=== PATIENT | male | born 1945 | race Hispanic/Latino ===

== ENCOUNTER 2021-11-19 06:19 | Day surgery (SDC) | payer OTHER ==
[2021-11-16 12:34] LABS: BASOPHILS % (AUTO) 0.6 % (0.0-5.0); EOSINOPHILS % (AUTO) 4.5 % (0.0-8.0); LYMPHOCYTES % (AUTO) 20.1 % (21.0-51.0); MEAN CORPUSCULAR HEMOGLOBIN 28.5 pg (27.0-33.0); MEAN CORPUSCULAR VOLUME 86.6 fL (79-99); MONOCYTES % (AUTO) 8.6 % (3.0-13.0); NEUTROPHILS % (AUTO) 66.1 % (40.0-77.0); PLATELET COUNT (AUTO) 181 K/uL (130-400); RED BLOOD CELL COUNT(AUTO) 5.08 MIL/uL (4.50-6.20); RED CELL DISTRIBUTION WIDTH 13.2 % (11.0-15.5); WHITE BLOOD COUNT (AUTO) 7.1 K/uL (4.8-10.8)
[2021-11-16 12:47] LABS: PROTHROMBIN TIME 10.9 SEC (9.6-11.6)
[2021-11-16 12:49] LABS: PARTIAL THROMBOPLASTIN TIME 26.1 SEC (26.3-35.5)
[2021-11-16 13:03] LABS: CREATININE 1.6 mg/dL (0.5-1.5); POTASSIUM 3.6 mmol/L (3.5-5.1)
[2021-11-18 13:46] VITALS: BP 145/88
[~2021-11-19] VITALS: Ht 177.8 cm; Wt 113.1 kg
[2021-11-19] VITALS (10 sets, daily range): BP systolic 112–161; BP diastolic 60–94
[2021-11-19] MEDS: CEFAZOLIN SODIUM 2 GM VIAL IV SCH ×2 (05:00→07:50)
[~2021-11-19 06:19] MED LIST: AMLO-257 PO; ASPI-1443 PO; CLON0.1T PO; CLOP75TA32 PO; FURO20TA4 PO; HYDR25TA PO; LATA7.5D OU; METO25TA6 PO; OLME40TA18 PO; ROSU20TA31 PO
[2021-11-19] MEDS ORDERED: CEFAZOLIN SODIUM 1 GM VIAL ONE (06:28)
[2021-11-19] MEDS ORDERED: LACTATED RINGERS 1000ML 1,000 ML IV ONE (06:28)
[2021-11-19] MEDS ORDERED: BACITRACIN 28.4 GM OINT TP ONE (07:06)
[2021-11-19] MEDS ORDERED: LIDOCAINE 1%-EPI 1:100,000 20 ML VIAL IJ ONE (07:06)
[2021-11-19] MEDS ORDERED: LIDOCAINE PF 100MG/5ML (2%) SYRINGE 5ML ONE (07:29)
[2021-11-19] MEDS ORDERED: PROPOFOL 10 MG/ML 20ML VIAL IV ONE (07:29)
[2021-11-19] MEDS ORDERED: FENTANYL CITRATE PF 50 MCG/1 ML 2ML VIAL ONE (07:30)
[2021-11-19] MEDS ORDERED: ROCURONIUM 10MG/1ML SYR 10 MG/ML ML ONE (07:30)
[2021-11-19] MEDS ORDERED: ONDANSETRON 4MG INJ ONE (07:30)
== END 2021-11-19 10:45 | disposition home or self-care (01) ==
LOC: DAH 06:19
PROVIDERS: ATTEND Otolaryngology Plastic Surgery within the Head & Neck
DX: C44.319 Basal cell carcinoma of skin of other parts of face (principal); C44.311 Basal cell carcinoma of skin of nose; I10 Essential (primary) hypertension; E66.9 Obesity, unspecified; I49.1 Atrial premature depolarization; Z95.1 Presence of aortocoronary bypass graft; Z79.01 Long term (current) use of anticoagulants
CPT/HCPCS: 80048; 85025; 85610; 85730; 36415; 87635; 93005; 11644; 11642; 88305; C9803; A4606; J7120; J3010; J0690; J3490; J2001; J2704; J2405; A4215; A4223; A4222; A4221; A4663; A4600